=== PATIENT | male | born 1970 | race Caucasian/White ===

== ENCOUNTER 2016-12-02 03:37 | Emergency (ER) | payer OTHER ==
[2016-12-02] MEDS ORDERED: DAILY VITAMIN1 EAC3 PO (03:49)
[2016-12-02] MEDS ORDERED: CLARITIN-D 121 EAC1 PO (03:49)
[2016-12-02 04:46] LABS: BASO % 0.1 % (0-2); EOS % 0.2 % (0-7); HCT-HEMATOCRIT 43.8 % (36.0-53.5); HGB-HEMOGLOBIN 14.9 gm/dl (13.5-17.0); LYMPH % 7.9 % (20-45); LYMPH ABSOLUTE COUNT 1.1 tho/cmm (0.8-4.5); MCH (MEAN CORPUSCULAR HGB) 30.6 pg (28.0-32.0); MCV (MEAN CELL VOLUME) 89.9 fl (82.0-96.0); MONOCYTE ABSOLUTE COUNT 1.6 tho/cmm (0.0-1.2); NEUTROPHIL ABSOLUTE COUNT 11.5 tho/cmm (1.6-8.0); NEUTROPHIL-AUTOMATED 11.5 tho/cmm (1.6-8.0); NEUTROPHILS % 80.8 % (40-80); PLATELET COUNT 245 tho/cmm (150-450); RED BLOOD COUNT 4.87 mil/cmm (4.40-5.70); RED CELL DISTRIBUTION WIDTH 12.9 % (12.4-16.4); WHITE BLOOD COUNT 14.2 tho/cmm (4.0-10.0)
[2016-12-02 05:01] LABS: ALBUMIN 3.7 g/dl (3.5-5.0); ALKALINE PHOSPHATASE 70 U/L (33-138); ALT/SGPT 32 U/L (12-78); ANION GAP 12 mmol/L (0-20); AST/SGOT 15 U/L (10-40); BILIRUBIN,TOTAL 0.6 mg/dl (0.0-1.5); BLOOD UREA NITROGEN 23 mg/dl (6-24); CALCIUM 8.7 mg/dl (8.5-10.5); CARBON DIOXIDE-VENOUS 27 mmol/L (22-32); CHLORIDE 104 mmol/l (96-110); CREATININE 1.36 mg/dl (0.60-1.30); GLUCOSE 98 mg/dL (70-110); LIPASE 189 U/L (73-393); POTASSIUM 3.8 mmol/L (3.7-5.1); SODIUM 139 mmol/L (135-145); eGFR VALUE FOR BLACK 72 mL/Min
[2016-12-02] MEDS ORDERED: FLAGYL500 M1 PO (06:25)
[2016-12-02] MEDS ORDERED: LEVAQUIN750 M1 PO (06:25)
[2016-12-02] MEDS ORDERED: PERCOCET 5-3251 EACH PO (06:25)
[2016-12-02 06:47] LABS: URINE BILIRUBIN NEGATIVE (NEG); URINE BLOOD NEGATIVE (NEG); URINE GLUCOSE (UA) NEGATIVE (NEG); URINE KETONE SMALL (NEG); URINE LEUKOCYTE ESTERASE NEGATIVE (NEG); URINE NITRITE NEGATIVE (NEG); URINE PROTEIN NEGATIVE (NEG)
[2016-12-02 06:48] LABS: URINE APPEARANCE CLEAR; URINE COLOR YELLOW
== END 2016-12-02 07:20 ==
LOC: EDMED 03:37
PROVIDERS: Emergency Medicine; Physician Assistant
DX: K57.90 Diverticulosis of intestine, part unspecified, without perforation or abscess without bleeding (principal); Z88.0 Allergy status to penicillin; Z90.49 Acquired absence of other specified parts of digestive tract; F17.290 Nicotine dependence, other tobacco product, uncomplicated
CPT/HCPCS: J1170; J2405; J7030; Q9967